=== PATIENT | female | born 1925 | race Caucasian/White ===

== ENCOUNTER → 2016-10-29 | Outpatient (CLI) | payer OTHER ==
[2016-10-29 13:32] LABS: BASO % 0.2 %; BASO ABS # 0.01 K/uL (0-0.2); COMPLETE YES; EOS % 1.5 %; IG% 0.2 %; LYMPH % 23.8 %; LYMPH ABS # 1.42 K/uL (1.2-3.4); MEAN CELL VOLUME 90.5 fL (80-100); MEAN CORPUSCULAR HEMOGLOBIN 29.1 pg (25-34); MEAN CORPUSCULAR HGB CONC 32.2 g/dl (32-36); MEAN PLATELET VOLUME 9.4 fL (7.4-10.4); MONO % 7.7 %; NEUT % 66.6 %; PLATELET COUNT 250 K/uL (130-400); RED BLOOD COUNT 4.09 M/uL (4.2-5.4); WHITE BLOOD COUNT 5.96 K/uL (4.8-10.8)
[2016-10-29 13:34] LABS: ESTIMATED AVERAGE GLUCOSE 154 mg/dl; HA1C FLAG Normal (Normal)
[2016-10-29 13:35] LABS: ALT/SGPT 13 U/L (12-78); AST/SGOT 14 U/L (15-37); BLOOD UREA NITROGEN 14 mg/dl (7-18); BUN/CREATININE RATIO 18.2 (10-20); CALCIUM 9.7 mg/dl (8.5-10.1); CARBON DIOXIDE 25 mmol/L (21-32); CHLORIDE 108 mmol/L (98-107); CHOLESTEROL 173 mg/dl (0-200); CREATININE 0.76 mg/dl (0.60-1.20); GLUCOSE 114 mg/dl (70-99); POTASSIUM 4.6 mmol/L (3.5-5.1); SODIUM 142 mmol/L (136-145); TRIGLYCERIDES 76 mg/dl (0-150); VERY LOW DENSITY LIPOPROT CALC 15 mg/dl
[2016-10-29 13:45] LABS: ALB/GLOB RATIO 1.2 (0.9-2); ALKALINE PHOSPHATASE 53 U/L (45-117); CHOLESTEROL/HDL RATIO 1.7; HDL CHOLESTEROL 99 mg/dl; LDL CHOLESTEROL CALCULATED 59 mg/dl
== END | disposition home or self-care (01) ==
LOC: C.LABMFLN 13:41
PROVIDERS: ATTEND Family Medicine
DX: E11.9 Type 2 diabetes mellitus without complications (principal); R41.3 Other amnesia; E78.5 Hyperlipidemia, unspecified

== ENCOUNTER → 2017-02-04 | Outpatient (CLI) | payer OTHER ==
[2017-02-04 13:40] LABS: BLOOD UREA NITROGEN 19 mg/dl (7-18); BUN/CREATININE RATIO 19.5 (10-20); CALCIUM 9.9 mg/dl (8.5-10.1); CARBON DIOXIDE 25 mmol/L (21-32); CHLORIDE 109 mmol/L (98-107); CREATININE 0.95 mg/dl (0.60-1.20); GLUCOSE 96 mg/dl (70-99); PHOSPHORUS 3.7 mg/dl (2.5-4.9); SODIUM 142 mmol/L (136-145)
[2017-02-04 13:51] LABS: ESTIMATED AVERAGE GLUCOSE 151 mg/dl; HA1C FLAG Normal (Normal)
== END | disposition home or self-care (01) ==
LOC: C.LABMFLN 11:17
PROVIDERS: ATTEND Family Medicine
DX: E11.9 Type 2 diabetes mellitus without complications (principal)

== ENCOUNTER → 2017-05-16 | Outpatient (CLI) | payer OTHER ==
[2017-05-16 18:38] LABS: BASO % 0.2 %; BASO ABS # 0.01 K/uL (0-0.2); COMPLETE YES; EOS % 1.4 %; HEMATOCRIT 39.6 % (37-47); IG% 0.2 %; MEAN CELL VOLUME 88.6 fL (80-100); MEAN CORPUSCULAR HEMOGLOBIN 27.7 pg (25-34); MEAN CORPUSCULAR HGB CONC 31.3 g/dl (32-36); MEAN PLATELET VOLUME 9.7 fL (7.4-10.4); MONO % 9.3 %; NEUT % 60.9 %; PLATELET COUNT 340 K/uL (130-400); RED BLOOD COUNT 4.47 M/uL (4.2-5.4); WHITE BLOOD COUNT 6.43 K/uL (4.8-10.8)
[2017-05-16 19:22] LABS: BLOOD UREA NITROGEN 17 mg/dl (7-18); CALCIUM 9.5 mg/dl (8.5-10.1); CARBON DIOXIDE 27 mmol/L (21-32); CHLORIDE 107 mmol/L (98-107); CREATININE 0.92 mg/dl (0.60-1.20); GLUCOSE 86 mg/dl (70-99); PHOSPHORUS 3.6 mg/dl (2.5-4.9); SODIUM 143 mmol/L (136-145)
[2017-05-16 19:23] LABS: CREATININE RANDOM URINE 19.4 mg/dl
[2017-05-17 07:17] LABS: ESTIMATED AVERAGE GLUCOSE 154 mg/dl; HA1C FLAG Normal (Normal)
== END | disposition home or self-care (01) ==
LOC: C.LABMFLN 12:55
PROVIDERS: ATTEND Family Medicine
DX: E11.9 Type 2 diabetes mellitus without complications (principal)